=== PATIENT | male | born 1980 | race Caucasian/White ===

== ENCOUNTER 2023-05-29 13:17 | Emergency (ER) | payer MEDICARE, MEDICAID, SELFPAY ==
[2023-05-29 13:28] VITALS: BP 135/66; PULSE 99; RESP 20; TEMP 37.1; O2SAT 98
--- NOTE | 2023-05-29 13:34 | DI.RAD.S_ITS ---
PROCEDURE: XR FOOT LT MIN 3V INDICATIONS: foot pain TECHNIQUE: 3 views of the foot were acquired. COMPARISON: None. FINDINGS: Bones: No fractures or dislocations. No suspicious bony lesions. Soft tissues: No tibiotalar joint effusion. Achilles tendon appears normal. IMPRESSION: No visualized acute fracture or dislocation. However, if clinical concern and/or pain persist, short interval imaging followup in 7-10 days is recommended, as occult injury cannot be definitively excluded. Dictated by: Louise Reed M.D. on 05/29/2023 at 14:36 Approved by: Louise Reed M.D. on 05/29/2023 at 14:41
--- NOTE | 2023-05-29 14:13 | ED_ITS ---
HPI - Extremity Injury (Lower) <Sandy Sharif PA-C - Last Filed: 05/29/23 16:05> General Chief Complaint: Extremity Injury, Lower Stated Complaint: poss broken foot/mental health Time Seen by Provider: 05/29/23 13:32 Source: patient and family Mode of arrival: Wheelchair History of Present Illness HPI Narrative: 42-year-old male with a history of bipolar disorder and schizophrenia, presents with his parents for evaluation of left foot injury. Most of the history is obtained from the father with the patient's consent. Parents were awakened last night about 3 in the morning with patient screaming and running around outdoors with no clothes on. As far as I know there was no inciting incident, and Ernesto has been generally easy going and compliant with his medications on a daily basis. After about an hour of yelling, running around without any suicidal ideation, father was able to give him a dose of lorazepam. With that point he calmed down and this morning complained of left foot pain. He does not recall twisting his ankle stepping on anything in particular and describes the pain as diffuse. He is no other constitutional complaints. Parents are also requesting a social work consult. They called his psychiatry office today and were not able to be seen nor speak to the psychiatrist who practices on [facility]. Father reports that patient has schizophrenia medication was recently increased from once a day to 3 times a day though they have not yet picked up the prescription. Patient himself denies recent alcohol or drug use. He has a counseling appointment on 06/05 and a psychiatry appointment on 06/13. Related Data Home Medications Medication Instructions Recorded Confirmed levothyroxine 100 mcg tablet 100 mcg PO DAILY 05/29/23 05/29/23 lorazepam 0.5 mg tablet 0.25 mg PO BID PRN anxiety 05/29/23 05/29/23 paliperidone 6 mg tablet,extended 6 mg PO DAILY 05/29/23 05/29/23 release 24 hr sertraline 25 mg tablet 25 mg PO DAILY 05/29/23 05/29/23 Allergies Allergy/AdvReac Type Severity Reaction Status Date / Time No Known Drug Allergies Allergy Verified 05/29/23 13:28 Review of Systems <Sandy Sharif PA-C - Last Filed: 05/29/23 16:05> Review of Systems ROS Unobtainable: All systems reviewed & are unremarkable except as noted in HPI and below Patient History <Sandy Sharif PA-C - Last Filed: 05/29/23 16:05> Social History Smoking Status: Current every day smoker Smoking Status: Current every day smoker tobacco type: cigarettes Substance Use Type: does not use Exam <Sandy Sharif PA-C - Last Filed: 05/29/23 16:05> Narrative Exam Narrative: Patient is sitting comfortably in a chair well-nourished, no acute distress, affect is appropriate but scattered. Left foot normal in appearance skin is warm dry and intact, there is no bony tenderness to palpation, no ligament laxity. When asked to walk across the room he stomps across the floor with no evidence of limp or discomfort. Lungs clear to auscultation bilaterally. Heart regular rate and rhythm with a grade II late systolic murmur heard at the sternum. Abdomen is soft and nontender. Initial Vital Signs Initial Vital Signs: Vital Signs Temperature 98.7 F 05/29/23 13:28 Pulse Rate 99 H 05/29/23 13:28 Respiratory Rate 20 05/29/23 13:28 Blood Pressure 135/66 05/29/23 13:28 Pulse Oximetry 98 05/29/23 13:28 Oxygen Delivery Method Room Air 05/29/23 13:28 <Tommy Arroyo, DO - Last Filed: 05/30/23 11:46> Initial Vital Signs Initial Vital Signs: Vital Signs Temperature 98.7 F 05/29/23 13:28 Pulse Rate 99 H 05/29/23 13:28 Respiratory Rate 20 05/29/23 13:28 Blood Pressure 135/66 05/29/23 13:28 Pulse Oximetry 98 05/29/23 13:28 Oxygen Delivery Method Room Air 05/29/23 13:28 <Ashlie Staley, DO - Last Filed: 05/30/23 00:18> Initial Vital Signs Initial Vital Signs: Vital Signs Temperature 98.7 F 05/29/23 13:28 Pulse Rate 99 H 05/29/23 13:28 Respiratory Rate 20 05/29/23 13:28 Blood Pressure 135/66 05/29/23 13:28 Pulse Oximetry 98 05/29/23 13:28 Oxygen Delivery Method Room Air 05/29/23 13:28 Course <Sandy Sharif PA-C - Last Filed: 05/29/23 16:05> Course Course Narrative: When I interviewed patient 2nd time, he was lucid and answered my questions appropriately. He smiled and joked after I told him I would give him ibuprofen, he wondered if I could give him ?that other drug.? Orders Ordered: Discontinued Medications Diphenhydramine HCl (Diphenhydramine 50 Mg/Ml Vial) 50 mg IM NOW ONE Stop: 05/29/23 23:07 Last Admin: 05/29/23 23:30 Dose: 50 mg Documented By: JESUS Haloperidol (Haloperidol 5 Mg/Ml Vial) 5 mg IM NOW ONE Stop: 05/29/23 23:07 Last Admin: 05/29/23 23:30 Dose: 5 mg Documented By: JESUS Ibuprofen (Ibuprofen 400 Mg Tablet) 400 mg PO NOW ONE Stop: 05/29/23 15:22 Last Admin: 05/29/23 15:29 Dose: 400 mg Documented By: SADIA Ibuprofen (Ibuprofen 400 Mg Tablet) 200 mg PO NOW ONE Stop: 05/29/23 15:22 Last Admin: 05/29/23 15:29 Dose: 200 mg Documented By: SADIA Lorazepam (Lorazepam 2 Mg/Ml Inj) 2 mg IM NOW ONE Stop: 05/29/23 23:02 Last Admin: 05/29/23 23:30 Dose: 2 mg Documented By: JESUS Nicotine (Nicotine 21 Mg Patch) 21 mg TOP NOW ONE Stop: 05/29/23 16:14 Last Admin: 05/29/23 16:29 Dose: 21 mg Documented By: JEFF Olanzapine (Olanzapine Odt 10 Mg Tab) 10 mg PO NOW ONE Stop: 05/29/23 15:02 Last Admin: 05/29/23 15:29 Dose: 10 mg Documented By: SADIA Olanzapine (Olanzapine Odt 10 Mg Tab) 10 mg PO NOW ONE Stop: 05/29/23 20:09 Last Admin: 05/29/23 21:33 Dose: 10 mg Documented By: AP Vital Signs Vital signs: Vital Signs - 8 hr 05/29/23 16:30 05/29/23 17:17 05/29/23 21:38 Pulse Rate 92 H Pulse Rate [Left Posterior Tibial] 70 Respiratory Rate 18 18 Blood Pressure 148/70 H 103/66 Pulse Oximetry 100 100 Oxygen Delivery Method Room Air Room Air <Tommy Arroyo DO - Last Filed: 05/30/23 11:46> Orders Ordered: Discontinued Medications Diphenhydramine HCl (Diphenhydramine 50 Mg/Ml Vial) 50 mg IM NOW ONE Stop: 05/29/23 23:07 Last Admin: 05/29/23 23:30 Dose: 50 mg Documented By: JESUS Haloperidol (Haloperidol 5 Mg/Ml Vial) 5 mg IM NOW ONE Stop: 05/29/23 23:07 Last Admin: 05/29/23 23:30 Dose: 5 mg Documented By: JESUS Ibuprofen (Ibuprofen 400 Mg Tablet) 400 mg PO NOW ONE Stop: 05/29/23 15:22 Last Admin: 05/29/23 15:29 Dose: 400 mg Documented By: SADIA Ibuprofen (Ibuprofen 400 Mg Tablet) 200 mg PO NOW ONE Stop: 05/29/23 15:22 Last Admin: 05/29/23 15:29 Dose: 200 mg Documented By: SADIA Lorazepam (Lorazepam 2 Mg/Ml Inj) 2 mg IM NOW ONE Stop: 05/29/23 23:02 Last Admin: 05/29/23 23:30 Dose: 2 mg Documented By: JESUS Nicotine (Nicotine 21 Mg Patch) 21 mg TOP NOW ONE Stop: 05/29/23 16:14 Last Admin: 05/29/23 16:29 Dose: 21 mg Documented By: JEFF Olanzapine (Olanzapine Odt 10 Mg Tab) 10 mg PO NOW ONE Stop: 05/29/23 15:02 Last Admin: 05/29/23 15:29 Dose: 10 mg Documented By: SADIA Olanzapine (Olanzapine Odt 10 Mg Tab) 10 mg PO NOW ONE Stop: 05/29/23 20:09 Last Admin: 05/29/23 21:33 Dose: 10 mg Documented By: AP Vital Signs Vital signs: Vital Signs - 8 hr 05/29/23 16:30 05/29/23 17:17 05/29/23 21:38 Pulse Rate 92 H Pulse Rate [Left Posterior Tibial] 70 Respiratory Rate 18 18 Blood Pressure 148/70 H 103/66 Pulse Oximetry 100 100 Oxygen Delivery Method Room Air Room Air <Ashlie Staley DO - Last Filed: 05/30/23 00:18> Orders Ordered: Discontinued Medications Diphenhydramine HCl (Diphenhydramine 50 Mg/Ml Vial) 50 mg IM NOW ONE Stop: 05/29/23 23:07 Last Admin: 05/29/23 23:30 Dose: 50 mg Documented By: JESUS Haloperidol (Haloperidol 5 Mg/Ml Vial) 5 mg IM NOW ONE Stop: 05/29/23 23:07 Last Admin: 05/29/23 23:30 Dose: 5 mg Documented By: JESUS Ibuprofen (Ibuprofen 400 Mg Tablet) 400 mg PO NOW ONE Stop: 05/29/23 15:22 Last Admin: 05/29/23 15:29 Dose: 400 mg Documented By: SADIA Ibuprofen (Ibuprofen 400 Mg Tablet) 200 mg PO NOW ONE Stop: 05/29/23 15:22 Last Admin: 05/29/23 15:29 Dose: 200 mg Documented By: SADIA Lorazepam (Lorazepam 2 Mg/Ml Inj) 2 mg IM NOW ONE Stop: 05/29/23 23:02 Last Admin: 05/29/23 23:30 Dose: 2 mg Documented By: JESUS Nicotine (Nicotine 21 Mg Patch) 21 mg TOP NOW ONE Stop: 05/29/23 16:14 Last Admin: 05/29/23 16:29 Dose: 21 mg Documented By: JEFF Olanzapine (Olanzapine Odt 10 Mg Tab) 10 mg PO NOW ONE Stop: 05/29/23 15:02 Last Admin: 05/29/23 15:29 Dose: 10 mg Documented By: SADIA Olanzapine (Olanzapine Odt 10 Mg Tab) 10 mg PO NOW ONE Stop: 05/29/23 20:09 Last Admin: 05/29/23 21:33 Dose: 10 mg Documented By: AP Vital Signs Vital signs: Vital Signs - 8 hr 05/29/23 16:30 05/29/23 17:17 05/29/23 21:38 Pulse Rate 92 H Pulse Rate [Left Posterior Tibial] 70 Respiratory Rate 18 18 Blood Pressure 148/70 H 103/66 Pulse Oximetry 100 100 Oxygen Delivery Method Room Air Room Air MDM - Extremity Injury (Lower) <Sandy Sharif PA-C - Last Filed: 05/29/23 16:05> Lab Data 05/29/23 14:20 05/29/23 14:20 Labs: Lab Results 05/29/23 05/29/23 05/29/23 Range/Units 14:02 14:20 16:01 WBC 13.0 H (4.5-11.0) X10^3/uL RBC 5.00 (4.5-5.9) X10^6/uL Hgb 15.1 (13.5-17.5) g/dL Hct 43.5 (41-53) % MCV 87.0 (80-100) fL MCH 30.2 (26-34) PG MCHC 34.7 (30-36) % RDW 13.9 (11.6-14.8) % Plt Count 384 (150-400) X10^3/uL Neut % (Auto) 85.5 H (50-75) % Lymph % (Auto) 5.5 L (25-40) % [place] % (Auto) 8.7 (3-14) % Eos % (Auto) 0.1 L (2-4) % Baso % (Auto) 0.2 (0-2) % Neut # (Auto) 05087 H (3423-9836) /uL Lymph # (Auto) 700 L (4479-8373) /uL [place] # (Auto) 1100 H (0-900) /uL Eos # (Auto) 0 (0-450) /uL Baso # (Auto) 0 (0-100) /uL Sodium 129 L (137-145) mmol/L Potassium 4.3 (3.4-5.1) mmol/L Chloride 91 L (98-107) mmol/L Carbon Dioxide 26 (22-32) mmol/L BUN 10 (9-20) mg/dL Creatinine 0.56 L (0.66-1.25) mg/dL Estimated GFR > 60 (>60) mL/min BUN/Creatinine Ratio 17.9 (6-22) Glucose 105 H (70-100) mg/dL Calcium 10.1 (8.4-10.2) mg/dL Magnesium 2.4 H (1.6-2.3) mg/dL Total Bilirubin 1.1 (0.2-1.3) mg/dL AST 47 (17-59) IU/L ALT 32 (<50) IU/L Alkaline Phosphatase 132 H (38-126) U/L Total Creatine Kinase 379 H (55-170) U/L Total Protein 8.5 H (6.3-8.2) g/dL Albumin 5.0 (3.5-5.0) g/dL Globulin 3.5 (1.7-4.1) g/dL Albumin/Globulin Ratio 1.4 (1.0-2.8) TSH 1.42 (0.47-4.68) uIU/mL Urine Color Urine Appearance Urine pH (4.5-8.0) Ur Specific [place] (1.000-1.035) Urine Protein (Negative) Urine Glucose (UA) (Negative) g/dL Urine Ketones (NEGATIVE) Urine Occult Blood (Negative) Urine Nitrate (Negative) Urine Bilirubin (NEGATIVE) Urine Urobilinogen (0.2) E.U./dL Ur Leukocyte Esterase (NEGATIVE) Urine RBC (0-5/HPF) Urine WBC (0-5/HPF) Ur Squamous Epith Cells (0-5/HPF) Urine Bacteria (None) Salicylates < 1.0 (<20) mg/dL U Opiates 300ng/mL cut (Negative) Ur Oxycodone Screen (Negative) Urine Methadone Screen (Negative) Acetaminophen < 10 (10-30) ug/mL Ur Barbiturates Screen (Negative) U Tricyclic Antidepress (Negative) Ur Phencyclidine Scrn (Negative) Ur Amphetamines Screen (Negative) U Methamphetamines Scrn (Negative) Ur MDMA Scrn (Ecstasy) (Negative) U Benzodiazepines Scrn (Negative) Urine Cocaine Screen (Negative) U Marijuana (THC) Screen (Negative) Ethyl Alcohol < 10 ( - 10) mg/dL SARS-CoV-2 (PCR) Negative (Negative) 05/29/23 Range/Units 17:42 WBC (4.5-11.0) X10^3/uL RBC (4.5-5.9) X10^6/uL Hgb (13.5-17.5) g/dL Hct (41-53) % MCV (80-100) fL MCH (26-34) PG MCHC (30-36) % RDW (11.6-14.8) % Plt Count (150-400) X10^3/uL Neut % (Auto) (50-75) % Lymph % (Auto) (25-40) % [place] % (Auto) (3-14) % Eos % (Auto) (2-4) % Baso % (Auto) (0-2) % Neut # (Auto) (2553-1837) /uL Lymph # (Auto) (2131-2781) /uL [place] # (Auto) (0-900) /uL Eos # (Auto) (0-450) /uL Baso # (Auto) (0-100) /uL Sodium (137-145) mmol/L Potassium (3.4-5.1) mmol/L Chloride (98-107) mmol/L Carbon Dioxide (22-32) mmol/L BUN (9-20) mg/dL Creatinine (0.66-1.25) mg/dL Estimated GFR (>60) mL/min BUN/Creatinine Ratio (6-22) Glucose (70-100) mg/dL Calcium (8.4-10.2) mg/dL Magnesium (1.6-2.3) mg/dL Total Bilirubin (0.2-1.3) mg/dL AST (17-59) IU/L ALT (<50) IU/L Alkaline Phosphatase (38-126) U/L Total Creatine Kinase (55-170) U/L Total Protein (6.3-8.2) g/dL Albumin (3.5-5.0) g/dL Globulin (1.7-4.1) g/dL Albumin/Globulin Ratio (1.0-2.8) TSH (0.47-4.68) uIU/mL Urine Color Yellow Urine Appearance Clear Urine pH 5.5 (4.5-8.0) Ur Specific [place] <=1.005 (1.000-1.035) Urine Protein Negative (Negative) Urine Glucose (UA) Negative (Negative) g/dL Urine Ketones 1+ H (NEGATIVE) Urine Occult Blood 1+ H (Negative) Urine Nitrate Negative (Negative) Urine Bilirubin Negative (NEGATIVE) Urine Urobilinogen 0.2 (0.2) E.U./dL Ur Leukocyte Esterase Negative (NEGATIVE) Urine RBC 1-5/hpf (0-5/HPF) Urine WBC None seen (0-5/HPF) Ur Squamous Epith Cells None seen (0-5/HPF) Urine Bacteria None seen (None) Salicylates (<20) mg/dL U Opiates 300ng/mL cut Negative (Negative) Ur Oxycodone Screen Negative (Negative) Urine Methadone Screen Negative (Negative) Acetaminophen (10-30) ug/mL Ur Barbiturates Screen Negative (Negative) U Tricyclic Antidepress Negative (Negative) Ur Phencyclidine Scrn Negative (Negative) Ur Amphetamines Screen Negative (Negative) U Methamphetamines Scrn Negative (Negative) Ur MDMA Scrn (Ecstasy) Negative (Negative) U Benzodiazepines Scrn Negative (Negative) Urine Cocaine Screen Negative (Negative) U Marijuana (THC) Screen Negative (Negative) Ethyl Alcohol ( - 10) mg/dL SARS-CoV-2 (PCR) (Negative) Imaging Data Extremity x-ray #1: Radiologist's Impression: PROCEDURE: XR FOOT LT MIN 3V INDICATIONS: foot pain TECHNIQUE: 3 views of the foot were acquired. COMPARISON: None. FINDINGS: Bones: No fractures or dislocations. No suspicious bony lesions. Soft tissues: No tibiotalar joint effusion. Achilles tendon appears normal. IMPRESSION: No visualized acute fracture or dislocation. However, if clinical concern and/or pain persist, short interval imaging followup in 7-10 days is recommended, as occult injury cannot be definitively excluded. Dictated by: Louise Reed M.D. on 05/29/2023 at 14:36 Approved by: Louise Reed M.D. on 05/29/2023 at 14:41 MDM Narrative Medical decision making narrative: There is no evidence of injury to the left foot but cannot rule out occult process. Parents are concerned about his mental status change last night and are requesting social work consult. Labs were drawn to rule out metabolic process for psychiatric break. Parents are expressing anxiety about taking him home and thinking it might happen again. After MS W consult she recommended DCS evaluation. Additional labs were ordered. Patient discussed with and turned over to . <Tommy Arroyo, DO - Last Filed: 05/30/23 11:46> Lab Data Labs: Lab Results 05/29/23 05/29/23 05/29/23 Range/Units 14:02 14:20 16:01 WBC 13.0 H (4.5-11.0) X10^3/uL RBC 5.00 (4.5-5.9) X10^6/uL Hgb 15.1 (13.5-17.5) g/dL Hct 43.5 (41-53) % MCV 87.0 (80-100) fL MCH 30.2 (26-34) PG MCHC 34.7 (30-36) % RDW 13.9 (11.6-14.8) % Plt Count 384 (150-400) X10^3/uL Neut % (Auto) 85.5 H (50-75) % Lymph % (Auto) 5.5 L (25-40) % [place] % (Auto) 8.7 (3-14) % Eos % (Auto) 0.1 L (2-4) % Baso % (Auto) 0.2 (0-2) % Neut # (Auto) 05925 H (0937-9161) /uL Lymph # (Auto) 700 L (4702-6304) /uL [place] # (Auto) 1100 H (0-900) /uL Eos # (Auto) 0 (0-450) /uL Baso # (Auto) 0 (0-100) /uL Sodium 129 L (137-145) mmol/L Potassium 4.3 (3.4-5.1) mmol/L Chloride 91 L (98-107) mmol/L Carbon Dioxide 26 (22-32) mmol/L BUN 10 (9-20) mg/dL Creatinine 0.56 L (0.66-1.25) mg/dL Estimated GFR > 60 (>60) mL/min BUN/Creatinine Ratio 17.9 (6-22) Glucose 105 H (70-100) mg/dL Calcium 10.1 (8.4-10.2) mg/dL Magnesium 2.4 H (1.6-2.3) mg/dL Total Bilirubin 1.1 (0.2-1.3) mg/dL AST 47 (17-59) IU/L ALT 32 (<50) IU/L Alkaline Phosphatase 132 H (38-126) U/L Total Creatine Kinase 379 H (55-170) U/L Total Protein 8.5 H (6.3-8.2) g/dL Albumin 5.0 (3.5-5.0) g/dL Globulin 3.5 (1.7-4.1) g/dL Albumin/Globulin Ratio 1.4 (1.0-2.8) TSH 1.42 (0.47-4.68) uIU/mL Urine Color Urine Appearance Urine pH (4.5-8.0) Ur Specific [place] (1.000-1.035) Urine Protein (Negative) Urine Glucose (UA) (Negative) g/dL Urine Ketones (NEGATIVE) Urine Occult Blood (Negative) Urine Nitrate (Negative) Urine Bilirubin (NEGATIVE) Urine Urobilinogen (0.2) E.U./dL Ur Leukocyte Esterase (NEGATIVE) Urine RBC (0-5/HPF) Urine WBC (0-5/HPF) Ur Squamous Epith Cells (0-5/HPF) Urine Bacteria (None) Salicylates < 1.0 (<20) mg/dL U Opiates 300ng/mL cut (Negative) Ur Oxycodone Screen (Negative) Urine Methadone Screen (Negative) Acetaminophen < 10 (10-30) ug/mL Ur Barbiturates Screen (Negative) U Tricyclic Antidepress (Negative) Ur Phencyclidine Scrn (Negative) Ur Amphetamines Screen (Negative) U Methamphetamines Scrn (Negative) Ur MDMA Scrn (Ecstasy) (Negative) U Benzodiazepines Scrn (Negative) Urine Cocaine Screen (Negative) U Marijuana (THC) Screen (Negative) Ethyl Alcohol < 10 ( - 10) mg/dL SARS-CoV-2 (PCR) Negative (Negative) 05/29/23 Range/Units 17:42 WBC (4.5-11.0) X10^3/uL RBC (4.5-5.9) X10^6/uL Hgb (13.5-17.5) g/dL Hct (41-53) % MCV (80-100) fL MCH (26-34) PG MCHC (30-36) % RDW (11.6-14.8) % Plt Count (150-400) X10^3/uL Neut % (Auto) (50-75) % Lymph % (Auto) (25-40) % [place] % (Auto) (3-14) % Eos % (Auto) (2-4) % Baso % (Auto) (0-2) % Neut # (Auto) (1565-1091) /uL Lymph # (Auto) (1451-0876) /uL [place] # (Auto) (0-900) /uL Eos # (Auto) (0-450) /uL Baso # (Auto) (0-100) /uL Sodium (137-145) mmol/L Potassium (3.4-5.1) mmol/L Chloride (98-107) mmol/L Carbon Dioxide (22-32) mmol/L BUN (9-20) mg/dL Creatinine (0.66-1.25) mg/dL Estimated GFR (>60) mL/min BUN/Creatinine Ratio (6-22) Glucose (70-100) mg/dL Calcium (8.4-10.2) mg/dL Magnesium (1.6-2.3) mg/dL Total Bilirubin (0.2-1.3) mg/dL AST (17-59) IU/L ALT (<50) IU/L Alkaline Phosphatase (38-126) U/L Total Creatine Kinase (55-170) U/L Total Protein (6.3-8.2) g/dL Albumin (3.5-5.0) g/dL Globulin (1.7-4.1) g/dL Albumin/Globulin Ratio (1.0-2.8) TSH (0.47-4.68) uIU/mL Urine Color Yellow Urine Appearance Clear Urine pH 5.5 (4.5-8.0) Ur Specific [place] <=1.005 (1.000-1.035) Urine Protein Negative (Negative) Urine Glucose (UA) Negative (Negative) g/dL Urine Ketones 1+ H (NEGATIVE) Urine Occult Blood 1+ H (Negative) Urine Nitrate Negative (Negative) Urine Bilirubin Negative (NEGATIVE) Urine Urobilinogen 0.2 (0.2) E.U./dL Ur Leukocyte Esterase Negative (NEGATIVE) Urine RBC 1-5/hpf (0-5/HPF) Urine WBC None seen (0-5/HPF) Ur Squamous Epith Cells None seen (0-5/HPF) Urine Bacteria None seen (None) Salicylates (<20) mg/dL U Opiates 300ng/mL cut Negative (Negative) Ur Oxycodone Screen Negative (Negative) Urine Methadone Screen Negative (Negative) Acetaminophen (10-30) ug/mL Ur Barbiturates Screen Negative (Negative) U Tricyclic Antidepress Negative (Negative) Ur Phencyclidine Scrn Negative (Negative) Ur Amphetamines Screen Negative (Negative) U Methamphetamines Scrn Negative (Negative) Ur MDMA Scrn (Ecstasy) Negative (Negative) U Benzodiazepines Scrn Negative (Negative) Urine Cocaine Screen Negative (Negative) U Marijuana (THC) Screen Negative (Negative) Ethyl Alcohol ( - 10) mg/dL SARS-CoV-2 (PCR) (Negative) [facility] Narrative Medical decision making narrative: There is no evidence of injury to the left foot but cannot rule out occult process. Parents are concerned about his mental status change last night and are requesting social work consult. Labs were drawn to rule out metabolic process for psychiatric break. Parents are expressing anxiety about taking him home and thinking it might happen again. After MS W consult she recommended DCS evaluation. Additional labs were ordered. Patient discussed with and turned over to . Dr arroyo: Received turned over. Patient is medically cleared. I agree with the above H&P. Patient has been seen by social work. I do have some concern about the patient's decision making capacity and does have an argument to be considered gravely disabled. DCR his being dispatched. Will evaluate here in the emergency department. Care turned over to Dr. Staley to follow-up and disposition. <Ashlie Staley, DO - Last Filed: 05/30/23 00:18> Lab Data Labs: Lab Results 05/29/23 05/29/23 05/29/23 Range/Units 14:02 14:20 16:01 WBC 13.0 H (4.5-11.0) X10^3/uL RBC 5.00 (4.5-5.9) X10^6/uL Hgb 15.1 (13.5-17.5) g/dL Hct 43.5 (41-53) % MCV 87.0 (80-100) fL MCH 30.2 (26-34) PG MCHC 34.7 (30-36) % RDW 13.9 (11.6-14.8) % Plt Count 384 (150-400) X10^3/uL Neut % (Auto) 85.5 H (50-75) % Lymph % (Auto) 5.5 L (25-40) % [place] % (Auto) 8.7 (3-14) % Eos % (Auto) 0.1 L (2-4) % Baso % (Auto) 0.2 (0-2) % Neut # (Auto) 88767 H (2221-3589) /uL Lymph # (Auto) 700 L (2743-5523) /uL [place] # (Auto) 1100 H (0-900) /uL Eos # (Auto) 0 (0-450) /uL Baso # (Auto) 0 (0-100) /uL Sodium 129 L (137-145) mmol/L Potassium 4.3 (3.4-5.1) mmol/L Chloride 91 L (98-107) mmol/L Carbon Dioxide 26 (22-32) mmol/L BUN 10 (9-20) mg/dL Creatinine 0.56 L (0.66-1.25) mg/dL Estimated GFR > 60 (>60) mL/min BUN/Creatinine Ratio 17.9 (6-22) Glucose 105 H (70-100) mg/dL Calcium 10.1 (8.4-10.2) mg/dL Magnesium 2.4 H (1.6-2.3) mg/dL Total Bilirubin 1.1 (0.2-1.3) mg/dL AST 47 (17-59) IU/L ALT 32 (<50) IU/L Alkaline Phosphatase 132 H (38-126) U/L Total Creatine Kinase 379 H (55-170) U/L Total Protein 8.5 H (6.3-8.2) g/dL Albumin 5.0 (3.5-5.0) g/dL Globulin 3.5 (1.7-4.1) g/dL Albumin/Globulin Ratio 1.4 (1.0-2.8) TSH 1.42 (0.47-4.68) uIU/mL Urine Color Urine Appearance Urine pH (4.5-8.0) Ur Specific [place] (1.000-1.035) Urine Protein (Negative) Urine Glucose (UA) (Negative) g/dL Urine Ketones (NEGATIVE) Urine Occult Blood (Negative) Urine Nitrate (Negative) Urine Bilirubin (NEGATIVE) Urine Urobilinogen (0.2) E.U./dL Ur Leukocyte Esterase (NEGATIVE) Urine RBC (0-5/HPF) Urine WBC (0-5/HPF) Ur Squamous Epith Cells (0-5/HPF) Urine Bacteria (None) Salicylates < 1.0 (<20) mg/dL U Opiates 300ng/mL cut (Negative) Ur Oxycodone Screen (Negative) Urine Methadone Screen (Negative) Acetaminophen < 10 (10-30) ug/mL Ur Barbiturates Screen (Negative) U Tricyclic Antidepress (Negative) Ur Phencyclidine Scrn (Negative) Ur Amphetamines Screen (Negative) U Methamphetamines Scrn (Negative) Ur MDMA Scrn (Ecstasy) (Negative) U Benzodiazepines Scrn (Negative) Urine Cocaine Screen (Negative) U Marijuana (THC) Screen (Negative) Ethyl Alcohol < 10 ( - 10) mg/dL SARS-CoV-2 (PCR) Negative (Negative) 05/29/23 Range/Units 17:42 WBC (4.5-11.0) X10^3/uL RBC (4.5-5.9) X10^6/uL Hgb (13.5-17.5) g/dL Hct (41-53) % MCV (80-100) fL MCH (26-34) PG MCHC (30-36) % RDW (11.6-14.8) % Plt Count (150-400) X10^3/uL Neut % (Auto) (50-75) % Lymph % (Auto) (25-40) % [place] % (Auto) (3-14) % Eos % (Auto) (2-4) % Baso % (Auto) (0-2) % Neut # (Auto) (9499-7684) /uL Lymph # (Auto) (8204-3762) /uL [place] # (Auto) (0-900) /uL Eos # (Auto) (0-450) /uL Baso # (Auto) (0-100) /uL Sodium (137-145) mmol/L Potassium (3.4-5.1) mmol/L Chloride (98-107) mmol/L Carbon Dioxide (22-32) mmol/L BUN (9-20) mg/dL Creatinine (0.66-1.25) mg/dL Estimated GFR (>60) mL/min BUN/Creatinine Ratio (6-22) Glucose (70-100) mg/dL Calcium (8.4-10.2) mg/dL Magnesium (1.6-2.3) mg/dL Total Bilirubin (0.2-1.3) mg/dL AST (17-59) IU/L ALT (<50) IU/L Alkaline Phosphatase (38-126) U/L Total Creatine Kinase (55-170) U/L Total Protein (6.3-8.2) g/dL Albumin (3.5-5.0) g/dL Globulin (1.7-4.1) g/dL Albumin/Globulin Ratio (1.0-2.8) TSH (0.47-4.68) uIU/mL Urine Color Yellow Urine Appearance Clear Urine pH 5.5 (4.5-8.0) Ur Specific [place] <=1.005 (1.000-1.035) Urine Protein Negative (Negative) Urine Glucose (UA) Negative (Negative) g/dL Urine Ketones 1+ H (NEGATIVE) Urine Occult Blood 1+ H (Negative) Urine Nitrate Negative (Negative) Urine Bilirubin Negative (NEGATIVE) Urine Urobilinogen 0.2 (0.2) E.U./dL Ur Leukocyte Esterase Negative (NEGATIVE) Urine RBC 1-5/hpf (0-5/HPF) Urine WBC None seen (0-5/HPF) Ur Squamous Epith Cells None seen (0-5/HPF) Urine Bacteria None seen (None) Salicylates (<20) mg/dL U Opiates 300ng/mL cut Negative (Negative) Ur Oxycodone Screen Negative (Negative) Urine Methadone Screen Negative (Negative) Acetaminophen (10-30) ug/mL Ur Barbiturates Screen Negative (Negative) U Tricyclic Antidepress Negative (Negative) Ur Phencyclidine Scrn Negative (Negative) Ur Amphetamines Screen Negative (Negative) U Methamphetamines Scrn Negative (Negative) Ur MDMA Scrn (Ecstasy) Negative (Negative) U Benzodiazepines Scrn Negative (Negative) Urine Cocaine Screen Negative (Negative) U Marijuana (THC) Screen Negative (Negative) Ethyl Alcohol ( - 10) mg/dL SARS-CoV-2 (PCR) (Negative) MDM Narrative Medical decision making narrative: There is no evidence of injury to the left foot but cannot rule out occult process. Parents are concerned about his mental status change last night and are requesting social work consult. Labs were drawn to rule out metabolic process for psychiatric break. Parents are expressing anxiety about taking him home and thinking it might happen again. After MS W consult she recommended DCS evaluation. Additional labs were ordered. Patient discussed with and turned over to . Dr arroyo: Received turned over. Patient is medically cleared. I agree with the above H&P. Patient has been seen by social work. I do have some concern about the patient's decision making capacity and does have an argument to be considered gravely disabled. DCR his being dispatched. Will evaluate here in the emergency department. Care turned over to Dr. Staley to follow-up and disposition. 05/29/23 Dr. Staley: Patient signed out to myself. Patient was seen by social work, DCR was dispatched patient was seen by VIMAL Hernandez here in the department. Patient has been redirectable, was given his evening medications along with an additional dose of olanzapine. Spoke with patient's parents, they are aware DCR is looking about possible placement. DCR found placement accepted at [facility]. Patient did well until his BLS transport arrived he did not wish to sit on the gurney. He wanted to manufacturing engineer assembly the back of the transport rig he was agitated did yell, attempted to walk away from the department. Law enforcement arrived attempted to deescalate patient and even offered to allow the patient to ride in the back of the police and cuffed but patient was not agreeable to being handcuffed but was agreeable to riding in the back of the police car. After multiple attempts of deescalation patient was given option of riding on the guarding or IM medications. He ultimately received IM medication and patient calmed and was able to be transported safely. Discharge Plan Departure Patient Disposition: [facility] Clinical Impression: Psychotic disorder, Injury of foot, left Activity Restrictions/Additional Instructions: You have a contusion to left foot without evidence of any bony fracture or abnormality on x-ray. You should take ibuprofen or Tylenol as needed for pain or discomfort and avoid heavy stress to that foot. Prescriptions: No Action levothyroxine 100 mcg tablet 100 mcg PO DAILY lorazepam 0.5 mg tablet 0.25 mg PO BID PRN (Reason: anxiety) sertraline 25 mg tablet 25 mg PO DAILY paliperidone 6 mg tablet extended release 24 hr 6 mg PO DAILY Referrals: Miscellaneous,Doctor, MD [Primary Care Provider] -
[2023-05-29 14:42] LABS: Add Manual Diff / Slide Review NO; Basophils Absolute Auto 0 /uL (0-100); Basophils Percent Auto 0.2 % (0-2); Eosinophils Absolute Auto 0 /uL (0-450); Eosinophils Percent Auto 0.1 % (2-4); Hematocrit 43.5 % (41-53); Hemoglobin 15.1 g/dL (13.5-17.5); Lymphocytes Absolute Auto 700 /uL (1100-4500); Lymphocytes Percent Auto 5.5 % (25-40); Mean Corpuscular HGB Conc 34.7 % (30-36); Mean Corpuscular Hemoglobin 30.2 PG (26-34); Monocytes Absolute Auto 1100 /uL (0-900); Monocytes Percent Auto 8.7 % (3-14); Neutrophils Absolute Auto 11100 /uL (1500-7000); Neutrophils Percent Auto 85.5 % (50-75); Platelet Count 384 X10^3/uL (150-400); Red Cell Distribution Width 13.9 % (11.6-14.8)
[2023-05-29 14:57] LABS: Alanine Aminotransferase 32 IU/L (<50); Albumin Globulin Ratio 1.4 (1.0-2.8); Alkaline Phosphatase 132 U/L (38-126); Aspartate Aminotransferase 47 IU/L (17-59); BUN Creatinine Ratio 17.9 (6-22); Bilirubin Total 1.1 mg/dL (0.2-1.3); Blood Urea Nitrogen 10 mg/dL (9-20); Calcium 10.1 mg/dL (8.4-10.2); Carbon Dioxide 26 mmol/L (22-32); Chloride 91 mmol/L (98-107); Creatine Kinase 379 U/L (55-170); Estimated Glomerular Filt Rate > 60 mL/min (>60); Globulin 3.5 g/dL (1.7-4.1); Glucose 105 mg/dL (70-100); HEMOLYSIS < 15 (0-50); Potassium 4.3 mmol/L (3.4-5.1); Sodium 129 mmol/L (137-145); Total Protein 8.5 g/dL (6.3-8.2)
[2023-05-29 15:15] LABS: Acetaminophen < 10 ug/mL (10-30); Ethanol (ETOH) < 10 mg/dL; Magnesium 2.4 mg/dL (1.6-2.3); Salicylate < 1.0 mg/dL (<20)
--- NOTE | 2023-05-29 15:27 | PC.NURSE ---
this RN went into the room and the patients father reports I just gave him half of a tablet of his lorazepam -a 0.25mg dose. provider and primary RN aware.
[2023-05-29] MEDS: IBUPROFEN 400 MG TABLET 200 MG PO (15:29)
[2023-05-29] MEDS: IBUPROFEN 400 MG TABLET PO (15:29)
[2023-05-29] MEDS: OLANZapine ODT 10 MG TAB PO ×2 (15:29→21:33)
--- NOTE | 2023-05-29 15:41 | PC.NURSE ---
This RN asked patient to provide urine sample and patient reports I already peed and I don't have to pee, I will wait a little bit. patients parents in the room with patient. patient up and pacing but cooperative. patient given a snack and some water. provider aware.
[2023-05-29 15:47] LABS: Thyroid Stimulating Hormone 1.42 uIU/mL (0.47-4.68)
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
[2023-05-29 16:22] LABS: COVID19 -Nasal RAPID Negative (Negative)
[2023-05-29] MEDS: NICOTINE 21 MG PATCH TOP (16:29)
[2023-05-29 16:30] VITALS: BP 148/70; PULSE 92; RESP 18; O2SAT 100
--- NOTE | 2023-05-29 17:08 | PC.NURSE ---
Pt eating dinner, sitting on the floor, talking to himself and dramatically wagging his finger. Pt gets up often to pace in the room, appears restless. Pt remains cooperative.
[2023-05-29 17:17] VITALS: PULSE 70
--- NOTE | 2023-05-29 17:40 | CM.SWNOTE ---
DATA ENTRY Note DATA ENTRY observes patient pace in the room back and forth and in circles holding his bible crossword puzzle. Patient has face mask on covering mouth and switches to have face mask on his forehead. DATA ENTRY receives call from DCR David, it is reported that he can speak with patient's parents via phone and plans to meet with patient in person in ED by 1930. Plan: Awaiting DCR evaluation and disposition. Bisi Gaspar, BILINGUAL KINDERGARTEN TEACHER
[2023-05-29 18:01] LABS: Appearance Urine UA CLEAR; Bilirubin Urine UA NEGATIVE (NEGATIVE); Color Urine UA YELLOW; Glucose Urine UA NEGATIVE (Negative); Ketones Urine UA 1+ (NEGATIVE); Leukocyte Esterase Urine UA NEGATIVE (NEGATIVE); Nitrite Urine UA NEGATIVE (Negative); Occult Blood Urine UA 1+ (Negative); Protein Urine UA NEGATIVE (Negative); Specific Gravity Urine UA <=1.005 (1.000-1.035); Urobilinogen Urine UA 0.2 E.U./dL (0.2); pH Urine UA 5.5 (4.5-8.0)
[2023-05-29 18:06] LABS: UR Morphine/Opiate cutoff 300 Negative (Negative); Ur Creatinine Normal (Normal); Ur Specific Gravity Normal (Normal); Urine Amphetamines Negative (Negative); Urine Barbiturates Negative (Negative); Urine Benzodiazepines Negative (Negative); Urine Cocaine Negative (Negative); Urine MDMA Negative (Negative); Urine Methadone Negative (Negative); Urine Methamphetamines Negative (Negative); Urine Oxycodone Negative (Negative); Urine Phencyclidine Negative (Negative); Urine Tetrahydrocannabinol Negative (Negative); Urine Tricyclic Antidepressant Negative (Negative); Urine pH Normal (Normal)
--- NOTE | 2023-05-29 18:25 | PC.NURSE ---
Pt is resting in bed with eyes closed, warm blanket and head of bed is raised. Since 4pm, patient has eaten 1 ED fridge sandwich, gingerale, a granola bar, 2 chocolate puddings, deli hamburger, potato chips, a grilled cheese sandwich, milk and a cookie.
[2023-05-29 18:43] LABS: Bacteria Urine None Seen; RBC Urine 1-5/HPF (0-5/HPF); Squamous Epithelial Cell Urine None Seen (0-5/HPF); WBC Urine None Seen (0-5/HPF)
--- NOTE | 2023-05-29 19:23 | PC.NURSE ---
David with DCR here to evaluate pt
--- NOTE | 2023-05-29 20:10 | PC.NURSE ---
pt was pacing in room
--- NOTE | 2023-05-29 20:10 | PC.NURSE ---
pt pacing in room Dr Staley speaking with parents
--- NOTE | 2023-05-29 20:15 | PC.NURSE ---
pt noted not in room, in process of looking for pt in hospital
--- NOTE | 2023-05-29 20:25 | PC.NURSE ---
found pt in the ambulance bay states he just wanted a cigarette, pt ambulatory back to room without incident
--- NOTE | 2023-05-29 20:48 | PC.NURSE ---
per Dr Staley pt may take his home medication Paliperidone ER 6 mg. pt given dose from his own medication
--- NOTE | 2023-05-29 21:30 | PC.NURSE ---
pt sitting on floor in door way reading his book, calm and cooperative
[2023-05-29 21:38] VITALS: BP 103/66; RESP 18; O2SAT 100
[2023-05-29 21:45] VITALS: PULSE 104
--- NOTE | 2023-05-29 22:20 | PC.NURSE ---
DCR on tablet to tell pt he is detained. pt given papers pt accepted papers without incident, sat back down on the floor and started to read the papers
--- NOTE | 2023-05-29 23:00 | PC.NURSE ---
EMS here to transfer pt, pt continued to read papers, when he was told he needed to go now that he could read the papers on the way, he stood and when he saw the stretcher he started yelling and refusing to get on the stretcher
[2023-05-29] MEDS: LORazepam 2 MG/ML INJ IM (23:30)
[2023-05-29] MEDS: HALOPERIDOL 5 MG/ML VIAL IM (23:30)
[2023-05-29] MEDS: diphenhydrAMINE 50 MG/ML VIAL IM (23:30)
--- NOTE | 2023-05-29 23:30 | PC.NURSE ---
Addendum entered by Lyla Larios R.N. 05/30/23 00:19: pt continued yelling during the episode Original Note: pt ran out the open door of the ER and started running thru the hospital, [employer] called and security followed pt, pt was returned to the ED, where [employer] started trying to deescalate the pt, pt continued to talk in a flight of ideas and after 30 minutes of [employer] attempting to deescalate pt pt was laid on the stretcher and medication administered [employer] continue to talk with pt
--- NOTE | 2023-05-29 23:50 | PC.NURSE ---
pt beginning to calm down agreed to get on the stretcher and eventually allowed the EMS crew to apply the seat belts for safety, pt left on stretcher calm and cooperative
== END 2023-05-30 ==
PROVIDERS: Emergency Medicine; Physician Assistant; Emergency Provider Emergency Medicine
DX: S99.922A Unspecified injury of left foot, initial encounter (principal); F29 Unspecified psychosis not due to a substance or known physiological condition; X50.1XXA Overexertion from prolonged static or awkward postures, initial encounter; Z20.822 Contact with and (suspected) exposure to COVID-19
CPT/HCPCS: 36415; 73630; 80053; 80305; 80320; 80329; 81001; 82550; 83735; 84443; 85025; 87635; 96372; 99284; C9803; G0480; J1200; J1630; J2060

== ENCOUNTER 2023-06-20 17:46 | Emergency (ER) | payer MEDICARE, MEDICAID, SELFPAY ==
[2023-06-20 17:54] VITALS: BP 169/84; PULSE 88; RESP 18; TEMP 36.7; O2SAT 99
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
--- NOTE | 2023-06-20 18:31 | PC.NURSE ---
JEMIMA and in room at triage. It is explained to parents and pt that we can start the process of finding a psych facility in the ER, but that it is not guaranteed that the pt will be accepted to [facility]. It is also explained to family and pt that we do not have a psychiatric unit at this [facility], but that we can help find placement at a variety of facilities while the pt is in the emergency room. Pt's family decided to take pt back home. RN explained to pt/family to call 911/ crisis team if they need immediate assistance. Pt left cooperatively with Mom and Dad
== END 2023-06-20 18:38 | disposition home or self-care (01) ==
PROVIDERS: Emergency Provider Emergency Medicine; PCP Nurse Practitioner
DX: F20.9 Schizophrenia, unspecified (principal); F17.210 Nicotine dependence, cigarettes, uncomplicated
CPT/HCPCS: 99281